=== PATIENT | female | born 1950 | race Caucasian/White ===

== ENCOUNTER 2020-10-19 15:10 | Outpatient (REF) | payer MEDICARE, SELFPAY ==
--- NOTE | 2020-10-19 15:20 | XR_ITS ---
EXAMINATION: XR LUMBAR SPINE XR SACROILIAC JOINTS CLINICAL INFORMATION: Lower back pain COMPARISON: None TECHNIQUE: 3 views of the lumbar spine. 3 views of the sacroiliac joints. FINDINGS: No fracture or subluxation. Slight dextroscoliosis of the lumbar spine centered at L3. Vertebral body heights are maintained. Mild disc space narrowing throughout the lower lumbar spine. Small multilevel endplate osteophytes throughout. Mild facet arthropathy. The sacroiliac joints are symmetric. There is no abnormal sclerosis along the sacroiliac joints. There is sclerosis of the sacrum throughout the S1 level. No fusion. No erosion. The visualized bowel gas pattern is unremarkable. XR/XR sacroiliac joint 1-2V IMPRESSION: Mild degenerative changes throughout the lumbar spine. Unremarkable appearance of the sacroiliac joints. Nonspecific sclerosis of the sacrum throughout the S1 level. No additional areas of abnormal sclerosis are seen. This is nonspecific.
--- NOTE | 2020-10-19 15:20 | XR_ITS ---
EXAMINATION: XR LUMBAR SPINE XR SACROILIAC JOINTS CLINICAL INFORMATION: Lower back pain COMPARISON: None TECHNIQUE: 3 views of the lumbar spine. 3 views of the sacroiliac joints. FINDINGS: No fracture or subluxation. Slight dextroscoliosis of the lumbar spine centered at L3. Vertebral body heights are maintained. Mild disc space narrowing throughout the lower lumbar spine. Small multilevel endplate osteophytes throughout. Mild facet arthropathy. The sacroiliac joints are symmetric. There is no abnormal sclerosis along the sacroiliac joints. There is sclerosis of the sacrum throughout the S1 level. No fusion. No erosion. The visualized bowel gas pattern is unremarkable. XR/XR lumbar spine 2-3V IMPRESSION: Mild degenerative changes throughout the lumbar spine. Unremarkable appearance of the sacroiliac joints. Nonspecific sclerosis of the sacrum throughout the S1 level. No additional areas of abnormal sclerosis are seen. This is nonspecific.
== END 2020-10-19 15:11 | disposition home or self-care (01) ==
LOC: HO.HMGCX 15:10
PROVIDERS: PCP Internal Medicine; Visit Provider Internal Medicine
DX: M54.5 Low back pain (principal)
CPT/HCPCS: 72100; 72200

== ENCOUNTER 2021-01-15 09:44 | Outpatient (REF) | payer MEDICARE, SELFPAY ==
[2021-01-15 11:19] LABS: Glucose Urine UA NEG (NEG); Leukocyte Esterase Urine NEG (NEG); Nitrite Urine NEG (NEG); Urine Blood NEG (NEG); Urine Ketones 5 MG/DL (NEG); Urine Protein TRACE MG/DL (NEG-TRACE)
[2021-01-15 11:20] LABS: Appearance Urine HAZY; Color Urine AMBER
[2021-01-15 11:45] LABS: Hematocrit 32.4 % (37-47); Mean Corpuscular HGB Conc 30.9 g/dl (31.0-35.0); Mean Corpuscular Hemoglobin 26.9 pg (27.0-33.0); Mean Corpuscular Volume 87.1 fL (80-98); Platelet Count 173 X10*3/uL (160-400); Red Blood Count 3.72 X10*6/uL (4.20-5.50); Red Cell Distribution Width 15.6 % (11.0-16.0); White Blood Count 4.7 X10*3/uL (4.8-10.8)
[2021-01-15 11:55] LABS: RBC Urine 0-2 /HPF (0); Squamous Epithelial Cell Urine TRACE /LPF; WBC Urine 0 /HPF (0-4)
[2021-01-15 12:12] LABS: Alanine Aminotransferase 18 U/L (0-31); Albumin Level 3.9 g/dL (3.5-5.0); Alkaline Phosphatase 95 U/L (39-117); Anion Gap 13 (12-20); Aspartate Amino Transferase 24 U/L (5-31); Bilirubin Total 0.6 mg/dL (0.0-1.0); Blood Urea Nitrogen 15 mg/dL (9-16); Carbon Dioxide 27 mmol/L (22-29); Chloride 104 mmol/L (96-108); Cholesterol 130 mg/dL; Estimated Glomerular Filt Rate > 60; Glucose Random 96 mg/dL (60-115); HDL Cholesterol 55 mg/dL; LDL Cholesterol Calculated 60 mg/dl; Sodium 140 mmol/L (135-145); Total Protein 6.4 g/dL (6.5-8.0); Triglycerides 76 mg/dL
[2021-01-15 12:14] LABS: TSH reflex Free T4 0.59 uIU/mL (0.32-4.0)
== END 2021-01-15 09:45 | disposition home or self-care (01) ==
LOC: HO.HMGCLDS 09:44
PROVIDERS: PCP Internal Medicine; Visit Provider Internal Medicine
DX: I25.10 Atherosclerotic heart disease of native coronary artery without angina pectoris (principal); R63.4 Abnormal weight loss
CPT/HCPCS: 36415; 80053; 80061; 81001; 84443; 85027

== ENCOUNTER 2021-02-07 14:46 | Outpatient (REF) | payer MEDICARE, SELFPAY ==
[2021-02-07 17:07] LABS: Iron 26 mcg/dL (30-160); Percent Iron Saturation 8 % (15-50); Total Iron Binding Capacity 321 mcg/dL (228-428); Unsaturated Iron Binding 295 ug/dL
[2021-02-07 17:38] LABS: Folate 19.1 ng/mL (> or = 4.0); Vitamin B12 573 pg/mL (200-900)
== END 2021-02-07 14:47 | disposition home or self-care (01) ==
LOC: HO.HMGCLDS 14:46
PROVIDERS: PCP Internal Medicine; Visit Provider Internal Medicine
DX: E78.2 Mixed hyperlipidemia (principal); R63.4 Abnormal weight loss; F32.9 Major depressive disorder, single episode, unspecified
CPT/HCPCS: 36415; 82607; 82746; 83540

== ENCOUNTER 2021-03-15 17:00 | Outpatient (RCR) | payer MEDICARE, SELFPAY ==
--- NOTE | 2020-12-06 17:32 | MHC.PT.EP ---
[facility] [place] [facility] [place] [facility] [place] [facility] [address] [phone] F: [phone] F: [phone] F: [phone] F: [phone] Physical Therapy Plan of Care Date of Evaluation: 12/06/20 Date of Surgery: Diagnosis: LBP. Assessment: Pt is a 70 y/o female with lung CA referred to PT for eval and treat of LBP who presents with lumbar dysfunction resulting in decreased tolerance and ability to perform ambulatory, standing and sitting tasks for duration as well as lifting and pushing objects of weight secondary to decreased hip and core strength, decreased trunk ROM as well as decreased posture, increased tissue tension, and pain. Pt is deemed an appropriate candidate to receive skilled PT in order to address her physical limitations to improve her functional ability. Frequency and Duration: The patient will be seen 2 x/ wk x 6 wks. Short Term Goals: In 1 week: initiate HEP with evidence of compliance. In 3 weeks: pt will report her pain is intermittent; initial: constant during the day. Mcfp Goals: In 6 weeks: improve transverse abdominis MMT to > good (-); initial: fair In 6 weeks: Pt will be able to tolerate 4 hours of PT work with managed Sx. Treatment Plan: Modalities to reduce pain, spasms and effusion. Manual therapy to restore motion and function. Therapeutic exercise to improve strength and flexibility. Neuromuscular re-education for posture and balance. Therapeutic activities to return to functional activities of daily living. Electronically signed by: Misael Beaver PT Please sign and return to therapist. Thank you for your referral.
--- NOTE | 2021-04-17 10:05 | MHC.PT.DC ---
[facility] [place] [facility] [place] [facility] [place] [facility] [address]ilber[address] Canseco [address] [phone] F: [phone] F: [phone] F: [phone] F: [phone] Physical Therapy Discharge Report Diagnosis: LBP. Date of Surgery: Date of Evaluation: 12/06/20 Date of Discharge: 04/17/21 Treatments to Date: 16 Cancellations to Date: 5 No Shows to Date: 0 Discharge Status: Improved Function Independent with HEP Discharge Summary: Pt is I with her home program and feels better when consistent with her exercises however she demonstrated poor home program compliance and is encouraged to continue and increase strengthening activities. Electronically signed by: Misael Beaver PT. Please sign and return to therapist. Thank you for your referral.
== END 2021-04-17 11:32 | disposition home or self-care (01) ==
LOC: HO.PTCHIC 17:00
PROVIDERS: PCP Internal Medicine; Visit Provider Internal Medicine
DX: M54.5 Low back pain (principal)
CPT/HCPCS: 97110; 97140; 97162; 97530